=== PATIENT | female | born 1975 ===

== ENCOUNTER 2019-06-04 15:43 | Observation (INO) ==
[2019-06-04] MEDS ORDERED: Isovue-370 500 ML BOTTLE IVP ONE (16:10)
[2019-06-04] MEDS ORDERED: *HR* HYDROmorphone 2 MG/ML SYRINGE IVP STA ×2 (16:11→19:10)
[2019-06-04] MEDS ORDERED: 0.9 % Sodium Chloride 1,000 ML IVC ONE (16:11)
[2019-06-04 16:27] LABS: Basophils % 0.5 %; Eosinophils # 0.1 K/mcL (0.0-0.6); Hematocrit 32.8 % (35.3-44.9); Hemoglobin 10.1 g/dL (11.5-15.4); Immature Granulocytes % 0.2 % (0-4); Lymphocytes # 1.6 K/mcL (0.6-4.6); Lymphocytes % 24.6 %; Mean Corpuscular HGB Conc 30.8 g/dL (31.6-35.5); Mean Corpuscular Hemoglobin 24.4 pg (28.0-33.3); Mean Corpuscular Volume 79.2 fL (83.0-100.0); Mean Platelet Volume 11.4 fL (9.4-12.4); Monocytes # 0.5 K/mcL (0.0-1.3); Neutrophils # 4.2 K/mcL (1.6-8.9); Platelet Count 206 K/mcL (140-400); Red Blood Count 4.14 M/mcL (3.82-4.97); Red Cell Distribution Width 15.9 % (11.5-14.5); Segmented Neutrophils % 65.7 %; White Blood Count 6.4 K/mcL (4.3-11.1)
[2019-06-04 16:43] LABS: BUN/Creatinine Ratio 15 (6-26); Blood Urea Nitrogen 9 mg/dL (6-20); Carbon Dioxide 25 mEq/L (23-29); Chloride 109 mEq/L (98-107); Glucose 104 mg/dL (70-105); Osmolality,Calculated 283 (280-300); Potassium 4.3 mEq/L (3.5-5.1); Sodium 137 mEq/L (136-145); eGFR For African Americans > 60 (> 60); eGFR For Non-African Americans > 60 (> 60)
[2019-06-04 21:13] LABS: Alanine Aminotransferase 15 Units/L (7-52); Albumin 3.6 g/dL (3.5-5.7); Albumin/Globulin Ratio 1.3 (1.1-2.2); Alkaline Phosphatase 34 Units/L (34-104); Aspartate Amino Transferase 16 Units/L (13-39); Bilirubin,Indirect 0.4 mg/dL (0.0-1.2); Bilirubin,Total 0.4 mg/dL (0.3-1.0); Globulin 2.8 g/dL (2.4-3.5); Total Protein 6.4 g/dL (6.4-8.9)
[2019-06-04] MEDS ORDERED: hydrOXYzine pamoate 25 MG CAPSULE PO PRN (23:06)
[2019-06-04] MEDS ORDERED: Naloxone 0.4 MG/ML INJ IVP PRN (23:07)
[2019-06-04] MEDS ORDERED: traZODone 50 MG TABLET PO SCH (23:15)
[2019-06-04] MEDS: cephALEXin 500 MG CAPSULE PO SCH (23:33)
[2019-06-04] MEDS: Ketorolac 15 MG/ML VIAL IVP PRN (23:33)
[2019-06-05] MEDS: 0.9 % Sodium Chloride 1,000 ML IVC SCH ×2 (00:09→07:11)
[2019-06-05 04:59] LABS: Hematocrit 27.9 % (35.3-44.9); Hemoglobin 8.6 g/dL (11.5-15.4); Mean Corpuscular HGB Conc 30.8 g/dL (31.6-35.5); Mean Corpuscular Hemoglobin 24.8 pg (28.0-33.3); Mean Corpuscular Volume 80.4 fL (83.0-100.0); Mean Platelet Volume 11.7 fL (9.4-12.4); Platelet Count 169 K/mcL (140-400); Red Blood Count 3.47 M/mcL (3.82-4.97); Red Cell Distribution Width 15.9 % (11.5-14.5); White Blood Count 5.5 K/mcL (4.3-11.1)
[2019-06-05 05:07] LABS: INR 1.1; Prothrombin Time 12.2 Seconds (9.4-12.1)
[2019-06-05 05:10] LABS: Activated Partial Thrombo Time 27.8 Seconds (26.0-36.0)
[2019-06-05 05:16] LABS: BUN/Creatinine Ratio 21 (6-26); Blood Urea Nitrogen 11 mg/dL (6-20); Calcium 7.9 mg/dL (8.6-10.3); Carbon Dioxide 19 mEq/L (23-29); Chloride 109 mEq/L (98-107); Glucose 101 mg/dL (70-105); Osmolality,Calculated 284 (280-300); Potassium 3.9 mEq/L (3.5-5.1); Sodium 137 mEq/L (136-145); eGFR For African Americans > 60 (> 60); eGFR For Non-African Americans > 60 (> 60)
[2019-06-05 05:17] LABS: Albumin/Globulin Ratio 1.3 (1.1-2.2); Bilirubin,Direct 0.1 mg/dL (0.0-0.2); Bilirubin,Indirect 0.3 mg/dL (0.0-1.2); Bilirubin,Total 0.4 mg/dL (0.3-1.0); Globulin 2.3 g/dL (2.4-3.5); Total Protein 5.3 g/dL (6.4-8.9)
[2019-06-05] MEDS: cephALEXin 500 MG CAPSULE PO SCH ×3 (07:43→16:58)
[2019-06-05] MEDS ORDERED: D5% in Water 1,000 ML IVC PRN (08:17)
[2019-06-05] MEDS ORDERED: *HR* Dextrose 50 % in Water (Syg) 50 ML SYRINGE IVP PRN (08:17)
[2019-06-05] MEDS ORDERED: Dextrose Gel 15 GM/37.5 ML TUBE PO PRN ×2 (08:17)
[2019-06-05] MEDS ORDERED: D5% in Lactated Ringers 1,000 ML IVC SCH (08:30)
[2019-06-05] MEDS: Ketorolac 15 MG/ML VIAL IVP PRN ×2 (08:37→15:38)
[2019-06-05] MEDS ORDERED: *HR* LORazepam 2 MG/ML VIAL IVP ONE (08:48)
[2019-06-05] MEDS: Insulin LISPRO 300 UNITS/3 ML VIAL SQ SCH ×2 (13:22→17:20)
[2019-06-05 16:14] VITALS: BP 99/68
[2019-06-05] MEDS ORDERED: *HR* Heparin 5,000 UNIT/ML VIAL SQ SCH (18:00)
== END 2019-06-05 18:28 | disposition home or self-care (01) ==
LOC: 3ANU 15:43 → EMEROOARM 15:43 → SUATTDRO 20:22 → 3ANU 21:05
PROVIDERS: ADMIT Family Medicine; ATTEND Internal Medicine